=== PATIENT | female | born 1980 | race Hispanic/Latino ===

== ENCOUNTER 2023-08-11 15:47 | Outpatient (CLI) | payer OTHER, SELFPAY ==
--- NOTE | ~2023-08-11 | US_ITS ---
EXAMINATION: US transvaginal DATE: 08/11/2023 17:28 INDICATION: Menorrhagia. Irregular cycles. Comparison:No prior studies for comparison. TECHNIQUE: Multiple transabdominal and endovaginal sonographic images of the pelvis performed. FINDINGS: The uterus measures 9 x 4.8 x 5.6 cm. There are nabothian cysts. The endometrial complex me asures 12 mm. The right ovary measures 2.8 x 2.3 x 2.6 cm and the left ovary measures 2.6 x 1.8 x 1.6 cm. There ar e small follicles in each ovary. Normal doppler signal in both ovaries. There is no free fluid in the pelvis. There are no abnormal masses seen on either side. IMPRESSION: 1. Mild endometrial thickening measuring 12 mm. Reviewed, dictated and finalized at location A.
== END 2023-08-11 15:48 | disposition home or self-care (01) ==
DX: N92.1 Excessive and frequent menstruation with irregular cycle (principal)
CPT/HCPCS: 76830